=== PATIENT | female | born 1975 | race Caucasian/White ===

== ENCOUNTER → 2016-12-29 | Outpatient (CLI) | payer OTHER ==
[~2016-12-29] MED LIST: ACET500C35 PO; BUTA1CAP17 PO; OXYC-57 PO; POTA10TA PO; TRAM-10 PO
--- NOTE | 2016-12-29 15:20 | MAMMOGRAPHY REPORT ---
BILATERAL DIGITAL SCREENING MAMMOGRAM TOMOSYNTHESIS WITH CAD: 12/29/2016 CLINICAL HISTORY: Routine screening. Baseline exam. TECHNIQUE: Breast tomosynthesis in addition to standard 2D mammography was performed. Current study was also evaluated with a Computer Aided Detection (CAD) system. COMPARISON: No prior exams were available for comparison. BREAST COMPOSITION: The tissue of both breasts is heterogeneously dense, which may obscure small mas ses. FINDINGS: There are well-circumscribed subcentimeter oval masses with central lucent notches in each upper outer quadrant, most compatible with benign intramammary lymph nodes. No suspicious spiculated or irregular mass, architectural distortion or cluster of suspicious microcalcifications is seen. IMPRESSION: ACR BI-RADS CATEGORY 1: NEGATIVE There is no mammographic evidence of malignancy. A 1 year screening mammogram is recommended. The pa tient will receive written notification of the results. Approximately 10% of breast cancers are not detected with mammography. A negative mammographic report should not delay biopsy if a clinically suggestive mass is present. Vangie Villaseñor M.D. ay/:12/29/2016 14:10:49 Warehouse Handler: Wendy MITCHELL)(Frances), [facility] letter sent: Normal 1/2 BI-RADS Code: ACR BI-RADS Category 1: Negative
== END | disposition home or self-care (01) ==
LOC: C.MAMM 13:37
PROVIDERS: ATTEND Plastic Surgery
DX: Z12.31 Encounter for screening mammogram for malignant neoplasm of breast (principal)

== ENCOUNTER 2017-01-31 05:29 | Observation (INO) | payer OTHER ==
[2017-01-26 09:28] VITALS: BMI 27.0
--- NOTE | 2017-01-26 10:07 | PAT Medication Instructions ---
Service Date Jan 26, 2017. Current Home Medication List Acetazolamide (Diamox), 1 CAP PO TID Mspplpfjcw-Weacckirqnrbw-Ibowz (Fioricet), 1 CAP PO DIRECTED PRN for Migraine Oxycodone/Acetaminophen 5MG/325MG (Percocet 5MG/325MG), 1-2 TABLETS PO Q4 PRN for Pain Potassium Chloride (K-Tabs), 1 TAB PO BID Tramadol (Ultram), 1 TAB PO TID PRN for Pain [Diamox], 250 MG PO QD PRN for PRN Medication Instructions For Your Scheduled Surgery - Check:with surgeon for instructions: Nlosqwamgb-Dfrtpdllqitmv-Jitby (Fioricet), 1 CAP PO DIRECTED PRN for Migraine - Check with prescribing physician for instructions: Acetazolamide (Diamox), 1 CAP PO TID Potassium Chloride (K-Tabs), 1 TAB PO BID [Diamox], 250 MG PO QD PRN for PRN - Take the following medications the morning of surgery with a sip of water: Tramadol (Ultram), 1 TAB PO TID PRN for Pain (okay to take up to 4 hours prior to surgery if needed) Oxycodone/Acetaminophen 5MG/325MG (Percocet 5MG/325MG), 1-2 TABLETS PO Q4 PRN for Pain (okay to take up to 4 hours prior to surgery if needed) - Take the following medications as scheduled the night before surgery: Tramadol (Ultram), 1 TAB PO TID PRN for Pain (if needed) Oxycodone/Acetaminophen 5MG/325MG (Percocet 5MG/325MG), 1-2 TABLETS PO Q4 PRN for Pain (if needed) Tmdatzkowz-Xoftdclydhypd-Sbcjk (Fioricet), 1 CAP PO DIRECTED PRN for Migraine (if needed) If you have any questions please call us at [phone] or [phone] or [phone]
[2017-01-26 11:42] LABS: HEMATOCRIT 39.6 % (37-47); MEAN CELL VOLUME 100.3 fL (80-100); MEAN CORPUSCULAR HEMOGLOBIN 32.4 pg (25-34); MEAN CORPUSCULAR HGB CONC 32.3 g/dl (32-36); MEAN PLATELET VOLUME 10.4 fL (7.4-10.4); PLATELET COUNT 259 K/uL (130-400); RED BLOOD COUNT 3.95 M/uL (4.2-5.4); WHITE BLOOD COUNT 8.74 K/uL (4.8-10.8)
[2017-01-26 11:52] LABS: INR 0.9 (0.9-1.1); PARTIAL THROMBOPLASTIN RATIO 0.9; PROTHROMBIN TIME (PATIENT) 9.6 SECONDS (9.0-12.0)
[2017-01-26 12:10] LABS: BASO % 0.5 %; BASO ABS # 0.04 K/uL (0-0.2); COMPLETE YES; EOS % 1.4 %; IG% 0.2 %; LYMPH % 16.1 %; LYMPH ABS # 1.41 K/uL (1.2-3.4); MONO % 5.3 %; NEUT % 76.5 %
[2017-01-26 12:26] LABS: BUN/CREATININE RATIO 17.6 (10-20); CALCIUM 8.6 mg/dl (8.5-10.1); CREATININE 1.28 mg/dl (0.60-1.20); POTASSIUM 3.9 mmol/L (3.5-5.1)
[~2017-01-31] VITALS: Ht 167.6 cm; Wt 77.3 kg
[2017-01-31] VITALS (8 sets, daily range): BP systolic 98–127; BP diastolic 57–70; PULSE 62–92; TEMP 36.3–36.9; O2SAT 94–98; Ht 167.6 cm; Wt 77.3 kg
[~2017-01-31 05:29] MED LIST changes: +DIAMOX PO
[2017-01-31] MEDS ORDERED: CLINDAMYCIN 600 MG/54 ML D5W IV SCH ×2 (06:00→14:00)
[2017-01-31] MEDS ORDERED: LACTATED RINGER'S 1000ML 1,000 ML IV SCH ×2 (06:00→16:00)
[2017-01-31] MEDS ORDERED: ACETAMINOPHEN 1000 MG/100 ML IV IV ONE (06:45)
[2017-01-31] MEDS ORDERED: PROPOFOL IV EMULSION 10 MG/ML 20 ML VIAL IV ONE (06:46)
[2017-01-31] MEDS ORDERED: LIDOCAINE HCL 2% 2 ML VIAL (20MG/ML) ONE (06:46)
[2017-01-31] MEDS ORDERED: DEXAMETHASONE SOD INJ 4 MG/ML VIAL ONE (06:46)
[2017-01-31] MEDS ORDERED: ONDANSETRON INJ 2 MG/ML 2 ML VIAL ONE (06:46)
[2017-01-31] MEDS ORDERED: FENTANYL CITRATE INJ 50 MCG/1 ML 2 ML VIAL ONE ×2 (06:47→07:53)
[2017-01-31] MEDS ORDERED: MIDAZOLAM HCL 1 MG/ML 2ML VIAL ONE (06:47)
[2017-01-31] MEDS ORDERED: HYDROmorphone INJ 2 MG/ML SYR/VIAL ONE ×2 (06:47→08:09)
[2017-01-31] MEDS ORDERED: LIDOCAINE/EPINEPHRINE 1% 20 ML VIAL ONE ×2 (07:06→08:55)
[2017-01-31] MEDS ORDERED: BUPIVACAINE 0.25% 30 ML VIAL ONE (07:06)
--- NOTE | 2017-01-31 07:09 | History & Physical Bridge Note ---
H&P Re-Evaluation Bridge Note: I have examined the patient, reviewed the History & Physical and in the interval since the performance of the History & Physical I have noted the following changes of clinical significance: No changes noted
[2017-01-31] MEDS ORDERED: ATROPINE SULFATE 0.1 MG/ML 5ML SYR IV PRN (07:45)
[2017-01-31] MEDS ORDERED: PROMETHAZINE HCL INJ 6.25 MG in SODIUM CHLORIDE 0.9% 50ML 50 ML IV PRN (07:45)
[2017-01-31] MEDS ORDERED: EpHEDrine SULFATE INJ 50 MG/ML AMP IV PRN (07:45)
[2017-01-31] MEDS ORDERED: HYDROmorphone INJ 1 MG/ML SYR IV PRN (07:45)
[2017-01-31] MEDS ORDERED: ONDANSETRON INJ 2 MG/ML 2 ML VIAL IV PRN ×2 (07:45→10:45)
[2017-01-31] MEDS ORDERED: ESMOLOL HCL 10 MG/ML 10 ML VIAL ONE (07:45)
[2017-01-31] MEDS ORDERED: KETAMINE HCL INJ 50 MG/ML 10 ML VIAL ONE (07:48)
[2017-01-31] MEDS ORDERED: RANITIDINE HCL 25 MG/ML INJ ONE ×2 (07:49→12:04)
[2017-01-31] MEDS ORDERED: METOPROLOL TARTRATE 1 MG/ML VIAL ONE (08:29)
[2017-01-31] MEDS ORDERED: PHENYLEPHRINE 100MCG/ML 5ML SYR ONE (08:29)
[2017-01-31] MEDS ORDERED: SODIUM CHLORIDE 0.9% INJ 10 ML VIAL ONE (09:20)
[2017-01-31] MEDS ORDERED: NEOSTIGMINE METHYLSULFATE 5 MG/5 ML SYR ONE (09:38)
[2017-01-31] MEDS ORDERED: GLYCOPYRROLATE INJ 0.2 MG/ML VIAL ONE (09:38)
--- NOTE | 2017-01-31 10:35 | [facility] Post Operative Brief Note ---
Immediate Operative Summary Operative Date Jan 31, 2017. Pre-Operative Diagnosis breast hypertrophy Post-Operative Diagnosis breast hypertrophy Procedure(s) Performed Bilateral Breast Reduction Surgeon Dr. Maria Teresa Adams Geoscience Professor Surgeon(s) Charlene Stuart PA-C Estimated Blood Loss 25ML Findings bilateral NACs pink and viable Specimens A.) Left Breast Tissue -out of body at 0824 -total weight - 408 grams B.) Right Breast Tissue -out of body at 0915 -total weight - 402 grams Drains JPx2 Anesthesia GET Complication(s) None Disposition Recovery Room / PACU
[2017-01-31] MEDS ORDERED: TRAMADOL HCL 50 MG TAB PO PRN (10:45)
[2017-01-31] MEDS ORDERED: DiphenhydrAMINE HCL 50 MG/ML VIAL IV PRN (10:45)
[2017-01-31] MEDS ORDERED: PROMETHAZINE HCL INJ 12.5 MG in SODIUM CHLORIDE 0.9% 50ML 50 ML IV PRN (10:45)
[2017-01-31] MEDS ORDERED: MoRPHine SULFATE 4 MG/ML 1 ML CARP\\VIAL IV PRN (10:45)
[2017-01-31] MEDS ORDERED: OXYCODONE/ACETAMINOPHEN 5-325 TAB PO PRN (10:45)
[2017-01-31] MEDS ORDERED: OXAZEPAM 10MG CAP PO PRN (10:45)
[2017-01-31] MEDS ORDERED: MoRPHine SULFATE 2 MG/ML CARP IV PRN ×2 (10:45)
[2017-01-31] MEDS ORDERED: ACETAMINOPHEN 325 MG TAB PO PRN (10:45)
[2017-01-31] MEDS: FENTANYL CITRATE INJ 50 MCG/1 ML 2 ML VIAL IV PRN ×4 (11:00→11:17)
[2017-01-31] MEDS ORDERED: IV FLUIDS COMPLETED PRN (11:00)
--- NOTE | 2017-01-31 11:11 | Anesthesiology Progress Note ---
Anesthesia Post Op Note Date & Time Jan 31, 2017 at 11:11 Vital Signs Pain Intensity: 0 Vital Signs Past 12 Hours Date Time Temp Pulse Resp B/P (MAP) Pulse Ox O2 Delivery O2 Flow Rate FiO2 01/31/17 10:45 36.7 82 14 101/70 99 Oxymask 10 01/31/17 05:45 36.9 62 18 127/68 (87) 98 Room Air Notes Mental Status: alert / awake / arousable, participated in evaluation Pt Amnestic to Procedure: Yes Nausea / Vomiting: adequately controlled Pain: adequately controlled Airway Patency, RR, SpO2: stable & adequate BP & HR: stable & adequate Hydration State: stable & adequate Anesthetic Complications: no major complications apparent
[2017-01-31] MEDS: CLINDAMYCIN IV 600 MG in DEXTROSE 5% 50ML 50 ML IV SCH (16:54)
[2017-01-31] MEDS: OXYCODONE/ACETAMINOPHEN 5-325 TAB PO PRN (17:00)
--- NOTE | 2017-01-31 18:08 | OPERATIVE REPORT ---
DATE OF OPERATION: 01/31/2017 PREOPERATIVE DIAGNOSIS: Bilateral symptomatic macromastia. POSTOPERATIVE DIAGNOSIS: Same. PROCEDURE: Bilateral reduction mammoplasty. SURGEON: Dr. Maria Teresa Adams. MANAGER PARK: Charlene Stuart PA-C. ANESTHESIA: General. COMPLICATIONS: None. INDICATION FOR THE PROCEDURE: The patient is a 41-year-old female with a history of chronic neck and back pain who presented to my office with large breasts and desired breast reduction surgery in order to help improve her symptomatology. BRIEF DESCRIPTION OF THE PROCEDURE: The risks, benefits and alternatives of the procedure were explained to the patient who agreed and signed consent. She was identified and marked in the preoperative holding area. She was brought to the operating room where she was positioned supine and placed under general anesthesia without incident. Surgical site was prepped and draped sterilely. A time-out procedure was performed. I began with the left side. Markings were reassessed and a 7 cm pedicle was marked. 1% lidocaine with epinephrine was used to anesthetize the planned incisions. A 38 mm cookie cutter was used to circumscribe the nipple-areolar complex. The previously marked 7 cm pedicle was incised using a 15 blade scalpel and epithelized. I began the medial dissection of the pedicle using electrocautery. Cautery was used to incise through dermis and breast parenchyma down to chest wall, taking care not to undermine the pedicle during dissection. A similar procedure was undertaken on the lateral aspect of the pedicle again taking care not to undermine. Lastly, the pedicle was dissected out superiorly using electrocautery and this was carried down to the chest wall as well. I then began with excision of the medial breast tissue followed by lateral aspect of the breast tissue and surrounding keyhole incision. A 15 blade scalpel was used to make the inframammary fold incision and electrocautery was used to deepen the incision through dermis and breast parenchyma. Dissection was then carried superiorly to the level of the superior incision. Superior incision was then incised using a 15 blade scalpel and again dissected using electrocautery. This was undertaken laterally and then around the keyhole portion of the incision. Care was taken to leave some fat on the lateral pectoralis fascia in order to protect the T4 intercostal nerve. Hemostasis was achieved with electrocautery. Specimen was removed in its entirety and passed off for weighing. Additional resection was undertaken from underneath the flap until a total of 408 grams of tissue were removed from the left breast. The wound was irrigated with normal saline. Hemostasis was achieved with electrocautery. 0.25% Marcaine plain was used to anesthetize the incisions as well as the pectoralis fascia. A 15 Belgian Gary drain was brought out through a separate stab incision. The nipple-areolar complex was brought into the keyhole using 2-0 Vicryl deep dermal suture. The wound was closed first in a lateral to mid breast direction using 2-0 Vicryl deep dermals and then in a medial to mid breast direction using 2-0 Vicryl deep dermals. Vertical limb was then approximated using 2-0 Vicryl deep dermals. Next, the superficial dermal layer was closed using 2-0 PDO running Quill suture along the inframammary fold and 3-0 PDS interrupted dermal sutures for vertical limb and nipple-areolar complex. Lastly, 3-0 Monocryl running subcuticular suture was placed. A similar procedure was undertaken on the right side with maximal excision weight of 402 grams. This resulted in reasonable symmetry between the breasts. Following complete closure, Dermabond Prineo was applied along the inframammary fold and vertical incisions and Dermabond was placed around the nipple-areolar complex. Dry dressings and a surgical bra were placed. The patient was awakened and transferred to recovery in satisfactory condition. Charlene Stuart PA-C was present and scrubbed throughout the entire procedure and was instrumental in providing retraction during dissection of the pedicle and assisting in simultaneous wound closure. I attest to the content of the Intraoperative Record and any orders documented therein. Any exception s are noted below.
[2017-01-31] MEDS: AcetaZOLAMIDE 500 MG CAPCR PO SCH (20:06)
[2017-01-31] MEDS ORDERED: NURSING VERBAL MED ORDER ONE (21:15)
[2017-02-01] MEDS: CLINDAMYCIN IV 600 MG in DEXTROSE 5% 50ML 50 ML IV SCH ×2 (00:29→09:04)
[2017-02-01] MEDS: OXYCODONE/ACETAMINOPHEN 5-325 TAB PO PRN (02:35)
[2017-02-01 04:00] VITALS: BP 106/70; PULSE 84; TEMP 37.3; O2SAT 96
[2017-02-01] MEDS: AcetaZOLAMIDE 500 MG CAPCR PO SCH (04:08)
[2017-02-01 06:53] VITALS: BP 105/68; PULSE 83; TEMP 37.3; O2SAT 97
[2017-02-01 07:12] VITALS: BP 126/71; PULSE 92; TEMP 36.8; O2SAT 96
--- NOTE | 2017-02-01 07:49 | Anesthesiology Progress Note ---
Anesthesia Post Op Note Date & Time Feb 01, 2017 at 07:49 Vital Signs Pain Intensity: 7.0 Vital Signs Past 12 Hours Date Time Temp Pulse Resp B/P (MAP) Pulse Ox O2 Delivery O2 Flow Rate FiO2 02/01/17 07:12 36.8 92 18 126/71 (89) 96 Room Air 02/01/17 06:53 37.3 83 19 105/68 (80) 97 Room Air 02/01/17 04:00 37.3 84 16 106/70 (82) 96 Room Air 02/01/17 00:30 Room Air 01/31/17 23:50 36.9 75 16 99/57 (71) 95 Room Air 01/31/17 20:03 36.6 65 18 109/70 (83) 97 Room Air Notes Mental Status: alert / awake / arousable, participated in evaluation Pt Amnestic to Procedure: Yes Nausea / Vomiting: adequately controlled Pain: adequately controlled Airway Patency, RR, SpO2: stable & adequate BP & HR: stable & adequate Hydration State: stable & adequate Anesthetic Complications: no major complications apparent
--- NOTE | 2017-02-01 08:07 | Surgery Progress Note ---
Surgery Progress Note Date of Service Feb 01, 2017. Subjective Post OP Day: 1 + feeling well, + ambulating, + pain controlled, + diet (regular), No complaints Objective Vital Signs: Date Time Temp Pulse Resp B/P (MAP) Pulse Ox O2 Delivery O2 Flow Rate FiO2 02/01/17 07:12 36.8 92 18 126/71 (89) 96 Room Air 02/01/17 06:53 37.3 83 19 105/68 (80) 97 Room Air 02/01/17 04:00 37.3 84 16 106/70 (82) 96 Room Air 02/01/17 00:30 Room Air 01/31/17 23:50 36.9 75 16 99/57 (71) 95 Room Air 01/31/17 20:03 36.6 65 18 109/70 (83) 97 Room Air 01/31/17 15:20 Nasal Cannula 2.0 01/31/17 15:12 36.5 84 18 98/60 (73) 98 Nasal Cannula 2.0 01/31/17 14:00 36.3 73 18 99/60 (73) 96 Nasal Cannula 2.0 01/31/17 13:04 36.4 68 19 105/66 (79) 94 Room Air 01/31/17 12:30 36.3 67 18 112/65 (81) 95 Nasal Cannula 2.0 01/31/17 12:00 Nasal Cannula 2.0 01/31/17 12:00 36.5 92 15 108/66 (80) 98 Nasal Cannula 2.0 01/31/17 12:00 Nasal Cannula 2.0 01/31/17 11:40 68 20 92/51 96 Nasal Cannula 2 01/31/17 11:25 36.7 82 20 102/54 93 Nasal Cannula 2 01/31/17 11:15 93 14 109/75 98 Nasal Cannula 2 01/31/17 11:05 81 19 106/59 96 Nasal Cannula 2 01/31/17 10:55 83 14 105/62 99 Oxymask 10 01/31/17 10:45 36.7 82 14 101/70 99 Oxymask 10 Physical Exam: Gary drainage (serous) General Appearance: WD/WN, no apparent distress Incision(s): clean, dry, intact, no erythema, findings (nipples pink and with sensation bilaterally) Assessment & Plan s/p bilateral breast reduction 1. POD#1. Feeling well. Drains removed. Will d/c home today and f/u in office tomorrow. Post-op instructions reviewed with the patient
--- NOTE | 2017-02-01 08:09 | Discharge Instructions ---
Discharge Instructions Date of Service Feb 01, 2017. Admission Reason for Admission: Breast Hypertrophy Discharge Discharge Diagnosis / Problem: breast hypertrophy Discharge Goals Goal(s): Decrease discomfort, Improve function Activity Recommendations Activity Limitations: per Instructions/Follow-up section ACTIVITY RECOMMENDATIONS: __Normal activities _x_No bending, lifting or straining __No driving __Driving allowed when you are off pain medications _x_Walking permitted __You should have help at home for ___ days DRESSINGS: __No dressings required _x_Keep dressings dry/in place until first office visit __Remove dressings ___ and leave dressings off __Apply ice ___ days __Remove dressings and reapply garment __Apply antibiotic ointment (Bacitracin, Neosporin, etc) to wounds 3-4 times/ day for 10 days BATHING: _x_Keep dressings dry _x_Sponge bathing permitted away from incision area __Showering permitted _x_No swimming, hot tubs or soaking in a tub MEDICATIONS: Resume previous medications unless instructed otherwise by your surgeon. _x_Do not use aspirin, Motrin, Advil or Ibuprofen as these may promote bleeding. Please use Tylenol. __Prescription(s) provided: OTHER INSTRUCTIONS: __Record drain output 2-3 times per day SPECIAL CARE INSTRUCTIONS: * It is normal to have a mild fever after surgery. If your temperature is higher than 101.5 degrees F, please call the office at [phone]. * Constipation is a typical side effect of pain medication. An over-the- counter stool softener will help relieve this. * Leaking around surgical drains may occur and should not cause concern. Sometimes these drains become clogged. If this happens, remove the bulb and milk the clot out of the tube, then replace the bulb. * Drainage from wounds after liposuction is normal and should be expected. Garments will become soiled. You should protect furniture and bedding. This drainage should mostly subside within 2-3 days. Leave garments in place unless instructed to remove them. * If you have unusual drainage from a wound or are concerned you have an infection or have any questions or concerns, please call the office at [phone]. FOLLOW UP VISIT: If not already scheduled, please call the office, , when you return home after surgery to schedule an appointment to be seen in __1_ days. . Current Hospital Diet Patient's current hospital diet: Regular Diet Discharge Diet Recommended Diet: Regular Diet Procedures Procedures Performed: Bilateral Breast Reduction Pending Studies Studies pending at discharge: yes List of pending studies: pathology Medical Emergencies . Who to Call and When: Medical Emergencies: If at any time you feel your situation is an emergency, please call 911 immediately. . Non-Emergent Contact Non-Emergency issues call your: Primary Care Provider, Surgeon . "Provider Documentation" section prepared by Charlene Stuart. . VTE Core Measure Inpt VTE Proph given/why not?: SCD's [place] Drug Monitoring Program Search Results: no issues identified
[2017-02-01] MEDS ORDERED: MULTIVITAMIN TAB PO SCH (09:00)
[2017-02-01 09:58] VITALS: BP 126/71; PULSE 92; TEMP 36.8; O2SAT 96
--- NOTE | 2017-02-01 16:12 | Discharge Summary ---
Discharge Summary Date of Service Feb 01, 2017. Admission Date/Reason Jan 31, 2017 at 10:48 Breast Hypertrophy. Discharge Date/Disposition Feb 01, 2017 Home Diagnosis Principal Diagnosis: macromastia Procedure(s) Performed bilateral breast reduction Medication Reconciliation Continued Medications: Acetazolamide (Diamox) 500 Mg Cap 1 CAP PO TID Mdtfhphfgp-Yygcwvewnecsv-Mprjj (Fioricet) 1 Cap Cap 1 CAP PO DIRECTED PRN for Migraine Oxycodone/Acetaminophen 5MG/325MG (Percocet 5MG/325MG) Tab 1-2 TABLETS PO Q4 PRN for Pain, TAB PAIN Potassium Chloride (K-Tabs) 10 Meq Tab 1 TAB PO BID Tramadol (Ultram) 50 Mg Tab 1 TAB PO TID PRN for Pain for 30 Days, #90 TAB [Diamox] () 250 MG PO QD PRN for PRN Admission Physical Exam As per Admitting History & Physical. Hospital Course Patient presented to same day surgery with history of breast hypertrophy. She was taken to the OR and underwent breast reduction surgery. She tolerted the procedure well adn there were no intraoperative complications. On POD#1 she was pain controlled. She reported symptomatic improvement of her back pain. She had serous output in her drains. her drains were removed. On exam, her incisions were clean, dry, intact and nipples pink and with sensation bilaterally. She was discharged home with instructions to follow-up as an outpatient the following day. Discharge Instructions Please refer to the electronic Patient Visit Report (Discharge Instructions) for additional information.
== END 2017-02-01 10:45 | disposition home or self-care (01) ==
LOC: C.ACU 05:29 → C.MSW 10:48 → ENRESERV 11:27 → UNDOADMOB 12:34 → C.MSW 12:34
PROVIDERS: ADMIT Plastic Surgery; ATTEND Plastic Surgery
DX: N62 Hypertrophy of breast (principal); M54.2 Cervicalgia; M25.519 Pain in unspecified shoulder; R51 Headache; Z98.890 Other specified postprocedural states; Z98.818 Other dental procedure status; Z83.49 Family history of other endocrine, nutritional and metabolic diseases